=== PATIENT | female | born 1985 | race Caucasian/White ===

== ENCOUNTER 2021-01-08 22:50 | Observation (INO) | payer BC, MEDICAID ==
[~2021-01-08] VITALS: Ht 160 cm; Wt 108.9 kg
[2021-01-09] MEDS ORDERED: ACETAMINOPHEN 325MG TABLET PO NR (00:30)
[2021-01-09 05:17] VITALS: BP 120/76
== END 2021-01-09 06:36 | disposition home or self-care (01) ==
LOC: 8 EST LDRP 22:50
PROVIDERS: ADMIT Obstetrics & Gynecology; ATTEND Obstetrics & Gynecology
DX: O62.9 Abnormality of forces of labor, unspecified (principal); O36.8130 Decreased fetal movements, third trimester, not applicable or unspecified; Z3A.36 36 weeks gestation of pregnancy
CPT/HCPCS: 59025; 76805; 76818; G0378; 99281

== ENCOUNTER 2021-01-21 05:03 | Inpatient (IN) | payer BC ==
[~2021-01-21] VITALS: Ht 152.4 cm; Wt 113.4 kg
[2021-01-21] MEDS ORDERED: LIDOCAINE HCL 1% 20ML VIAL (Pyxis) INJ INFIL SCH (05:30)
[2021-01-21] MEDS ORDERED: BUTORPHANOL TARTRATE 2 MG/ML VIAL IV PRN (05:30)
[2021-01-21] MEDS ORDERED: CARBOPROST TROMETHAMINE 250 MCG/ML AMPUL IM PRN (05:30)
[2021-01-21] MEDS ORDERED: LACTATED RINGERS 1,000 ML IV SCH (05:30)
[2021-01-21] MEDS ORDERED: METHYLERGONOVINE MALEATE 0.2 MG/ML IM PRN ×2 (05:30→07:45)
[2021-01-21] MEDS ORDERED: MINERAL OIL 30ML BOTTLE TOP NR ×2 (05:30→06:30)
[2021-01-21] MEDS ORDERED: NALOXONE HCL 0.4 MG/ML 1ML VIAL IM PRN (05:30)
[2021-01-21] MEDS ORDERED: DEXT 5%/LR + PITOCIN 20UNITS/L 1,000 ML IV SCH ×2 (05:30→07:45)
[2021-01-21] MEDS ORDERED: MISOPROSTOL 200MCG TABLET VG SCH (05:30)
[2021-01-21] MEDS ORDERED: PREN1TAB78 PO (05:32)
[2021-01-21] MEDS ORDERED: PENICILLIN G POTASSIUM 5 MMU in DEXT 5% WATER 100 ML IV NR (06:00)
[2021-01-21 06:22] LABS: BASOPHILS % 0.3 % (0.0-2.0); EOSINOPHILS % 0.1 % (0.0-5.0); HEMATOCRIT. 37.8 % (36.0-48.0); HEMOGLOBIN. 12.1 g/dL (12.0-16.0); LYMPHOCYTES % 17.9 % (20.0-50.0); MEAN CORPUSCULAR VOLUME 81.3 fL (81.0-99.0); MEAN PLATELET VOLUME 9.2 fl (7.4-10.4); MONOCYTES % 5.8 % (2.0-8.0); NEUTROPHILS % 75.9 % (40.0-76.0); PLATELET 208 x1000/uL (130-400); RED BLOOD CELL COUNT 4.65 mill/uL (4.2-5.4); RED CELL DISTRIBUTION WIDTH 16.1 % (11.6-14.6)
[2021-01-21 06:33] LABS: INR 0.9; PARTIAL THROMBOPLASTIN TIME 31.9 sec (23.4-31.0); PROTHROMBIN TIME 9.6 sec (9.6-11.0)
[2021-01-21] MEDS ORDERED: IBUPROFEN 400MG TABLET PO PRN (07:45)
[2021-01-21] MEDS ORDERED: IBUPROFEN 800MG TABLET PO PRN (07:45)
[2021-01-21] MEDS ORDERED: LANOLIN OINT 7GM TUBE TOP PRN (07:45)
[2021-01-21] MEDS ORDERED: RHO(D) IMMUNE GLOBULIN 300 MCG/SYR IM PRN (07:45)
[2021-01-21] MEDS ORDERED: METHYLERGONOVINE MALEATE 0.2 MG/ML ONE (08:10)
[2021-01-21 08:16] LABS: HEPATITIS B SURFACE ANTIGEN NEGATIVE
[2021-01-21 09:00] VITALS: BP 107/57
[2021-01-21] MEDS ORDERED: PRENATAL VIT/FE FUMARATE/FA TABLET PO SCH (09:00)
[2021-01-21] MEDS ORDERED: PENICILLIN G POTASSIUM 2.5 MMU in DEXTROSE 5% WATER 50 ML IV SCH (10:00)
[2021-01-21 20:00] VITALS: BP 124/74
[2021-01-22 05:00] VITALS: BP 123/58
[2021-01-22 06:27] LABS: BASOPHILS % 0.3 % (0.0-2.0); EOSINOPHILS % 0.5 % (0.0-5.0); HEMATOCRIT. 36.8 % (36.0-48.0); HEMOGLOBIN. 11.9 g/dL (12.0-16.0); LYMPHOCYTES % 25.1 % (20.0-50.0); MEAN CORPUSCULAR HEMOGLOBIN 26.1 pg (28.0-32.0); MEAN CORPUSCULAR VOLUME 80.8 fL (81.0-99.0); MEAN PLATELET VOLUME 9.2 fl (7.4-10.4); MONOCYTES % 6.7 % (2.0-8.0); NEUTROPHILS % 67.4 % (40.0-76.0); PLATELET 195 x1000/uL (130-400); RED BLOOD CELL COUNT 4.56 mill/uL (4.2-5.4); RED CELL DISTRIBUTION WIDTH 16.6 % (11.6-14.6)
[2021-01-22 07:30] VITALS: BP 113/63
[2021-01-22 15:51] VITALS: BP 107/53
[2021-01-22 20:00] VITALS: BP 116/75
[2021-01-23 04:30] VITALS: BP 127/77
[2021-01-23 07:30] VITALS: BP 114/60
== END 2021-01-23 14:45 | disposition home or self-care (01) | DRG 806 ==
LOC: OBSVTOIN 05:03 → 8 EST LDRP 05:03 → 8EST 09:18
PROVIDERS: ADMIT Obstetrics & Gynecology; ATTEND Obstetrics & Gynecology
PROC: 10E0XZZ Delivery of Products of Conception, External Approach (ICD-10-PCS; principal; 2021-01-21)
DX: O77.0 Labor and delivery complicated by meconium in amniotic fluid (principal); D62 Acute posthemorrhagic anemia; Z37.0 Single live birth; Z3A.38 38 weeks gestation of pregnancy; O99.03 Anemia complicating the puerperium; Z20.822 Contact with and (suspected) exposure to COVID-19
CPT/HCPCS: 36415; 85025; 86592; 86703; 86762; 86850; 86900; 87340; 87426; 99281; J2210; J2540; J2590; J3490; J7060